=== PATIENT | female | born 1970 | race Caucasian/White ===

== ENCOUNTER 2017-03-20 11:21 | Day surgery (SDC) | payer OTHER ==
[~2017-03-20] VITALS: Ht 154.9 cm; Wt 55.5 kg
[~2017-03-20 11:21] MED LIST: CLARITIN,ALAVAR10 MG PO; VENTOLIN HFA18 GM IH
[2017-03-20 12:36] VITALS: BP 137/70
[2017-03-20 15:10] VITALS: BP 112/72
[2017-03-20 16:10] VITALS: BP 121/69
== END 2017-03-20 16:20 | disposition home or self-care (01) ==
LOC: SDC 11:21
DX: D06.1 Carcinoma in situ of exocervix (principal); D06.0 Carcinoma in situ of endocervix; J45.909 Unspecified asthma, uncomplicated; Z86.010 Personal history of colon polyps; Z83.49 Family history of other endocrine, nutritional and metabolic diseases
CPT/HCPCS: 84702; 88305; J1885; J2405; J3010